=== PATIENT | male | born 1995 | race Hispanic/Latino ===

== ENCOUNTER 2021-04-20 15:33 | Emergency (ER) | payer OTHER ==
[~2021-04-20] VITALS: Ht 162.6 cm; Wt 59.0 kg
[2021-04-20 15:34] VITALS: BP 117/80
[2021-04-20] MEDS ORDERED: IBUPROFEN 600 MG TABLET PO ONE (16:00)
[2021-04-20] MEDS ORDERED: AZITHROMYCIN 250 MG TABLET PO SCH (16:30)
[2021-04-20] MEDS ORDERED: CEFTRIAXONE 1G VIAL IM SCH (16:30)
[2021-04-20] MEDS ORDERED: ACET-2247 PO (16:41)
[2021-04-20] MEDS ORDERED: ALBUHFA IH (16:41)
[2021-04-20] MEDS ORDERED: AZIT500T PO (16:41)
== END 2021-04-20 16:58 | disposition home or self-care (01) ==
LOC: EDH 15:33
DX: U07.1 COVID-19 (principal); B34.9 Viral infection, unspecified; Z79.899 Other long term (current) drug therapy
CPT/HCPCS: 71045; 87635; 87804 ×2; 87880; 96372; 99284; C9803; J0696